=== PATIENT | female | born 1945 | race Caucasian/White ===

== ENCOUNTER 2024-02-26 13:57 | Emergency (ER) | payer OTHER ==
[~2024-02-26] VITALS: Ht 162.6 cm; Wt 68.0 kg
[~2024-02-26 13:57] MED LIST: ACID1GRA4 PO; AEC81 PO; BISA-151 PO; DRON400T7 PO; FURO20TA4 PO; METO-391 PO; METO50TA9 PO; MIDO5TAB4 PO; ONDA-243 PO; PANT40TA54 PO; QUET50TA24 PO; SACU1TAB PO
--- NOTE | 2024-02-26 14:21 | ERN ---
ED Note History of Present Illness Stated Complaint: WEAKNESS Chief Complaint: Weakness Time Seen by MD: 14:06 Dictation: 78-year-old female with a history of CHF, hypotension, Alzheimer's and dementia presents to the ED via EMS for evaluation of weakness onset 3 days ago. Has been reports lower extremity swelling, abdominal pain, dysuria, bowel dysfunction, but denies any other associated symptoms at this time. Allergies: Coded Allergies: No Known Allergies (Unverified Allergy, Unknown, 01/05/24) Home Meds Active Scripts Quetiapine Fumarate (Quetiapine Fumarate) 50 Mg Tablet, 1 TAB PO HS for 30 Days, #30 TAB 0 Refills Prov:XANDER MARKS MD 01/10/24 Midodrine HCl (Midodrine HCl) 5 Mg Tablet, 1 TAB PO TID for 30 Days, #90 TAB 0 Refills Prov:XANDER MARKS MD 01/10/24 Sacubitril/Valsartan (Entresto 24 mg-26 mg Tablet) 24 Mg-26 Mg Tablet, 1 EACH PO BID, #30 TAB 0 Refills Prov:XANDER MARKS MD 01/09/24 Metoprolol Succinate (Toprol Xl) 50 Mg Tab.er.24h, 50 MG PO DAILY, #30 TAB 0 Refills Prov:XANDER MARKS MD 01/09/24 Aspirin (ASPIRIN 81 MG ECTAB) 81 Mg Ectab, 81 MG PO DAILY, #30 TAB.EC 0 Refills Prov:XANDER MAKRS MD 01/09/24 Reported Medications Bisacodyl (Bisacodyl) 5 Mg Tablet.dr, 2 TAB PO AD for constipation, #2 TAB 0 Refills 01/08/24 Acidophilus/Bulgaricus (Floranex Granules Packet) 100 Million Cell Gran.pack, 1 EACH PO TID for d, PACK 01/05/24 Ondansetron (Ondansetron Odt) 4 Mg Tab.rapdis, 1 TAB PO Q6HPRN PRN for n ausea/vomiting for 4 Days, #16 TAB 0 Refills 01/05/24 Metoprolol Succinate (Metoprolol Succinate) 50 Mg Tab.er.24h, 1 TAB PO DAILY for 30 Days, #30 TAB 0 Refills 01/05/24 Dronedarone Hydrochloride (Multaq) 400 Mg Tablet, 1 TAB PO BID for 30 Days, #60 TAB 0 Refills 01/05/24 Furosemide (Furosemide) 20 Mg Tablet, 1 TAB PO DAILY for 30 Days, #30 TAB 0 Refills 01/05/24 Pantoprazole Sodium (Pantoprazole Sodium) 40 Mg Tablet.dr, 1 TAB PO BID for 30 Days, #30 TAB 0 Refills 01/05/24 Past Medical History Past Medical History: Hypertension Surgical History: Unknown Review of System Dictation Constitutional: Negative for fever,chills, and weight loss Eyes: Negative for injury, pain,redness, and discharge ENT: Negative for injury,pain or swelling Cardiovascular: Negative for chest pain, palpitations, and edema Respiratory: Negative for shortness of breath, cough, and wheezing, Abdomen/GI: Positive for abdominal pain, negative for nausea, vomiting, diarrhea, and constipation Back: Negative for injury and pain : Positive for dysuria, dysfunction Negative for injury, bleeding and discharge MS/Extremity: Positive for lower extremity swelling Negative for injury and deformity Skin: Negative for rash, and discoloration Neuro: Negative for headache, weakness, numbness, tingling, and seizure Psych: Negative for suicide ideation, homicidal ideation, and hallucinations Initial Vital Sign VS Vital Signs Date Time Temp Pulse Resp B/P (MAP) Pulse Ox O2 Delivery O2 Flow Rate FiO2 02/26/24 14:02 98.4 103 16 105/69 95 Room Air 02/26/24 14:41 0 21 Physical Exam Dictation General: awake, alert, NAD Head/Face: Normocephalic, atraumatic Eyes: PERRL, EOMI, vision at baseline ENT: oral cavity clear, TMs clear, no signs of infection Neck: Trachea midline, supple, no nuchal rigidity Cardiovascular: RRR, normal S1/S2, No MRGs, +2 pedal edema bilaterally Respiratory: CTAB, no respiratory distress, No rales or wheezes Abdomen: Soft, non-tender, non-distended, normal bowel sounds, no guarding or rebound. Skin: Warm, dry, normal turgor, no rash MS/Extremity: Pulses equal, no cyanosis, neurovascular intact, FROM ED Course ED Course Vital Signs Date Time Temp Pulse Resp B/P (MAP) Pulse Ox O2 Delivery O2 Flow Rate FiO2 02/26/24 14:41 98.2 100 16 105/70 96 Room Air* 0 21 02/26/24 14:02 98.4 103 16 105/69 95 Room Air Medical Decision Making MDM MDM: Differential diagnosis: UTI, electrolyte imbalance, weakness 1430-patient does not want to be seen at the ER anymore. Patient will be leaving AMA Previous outside records reviewed: Old ER visits. Need for hospitalization: Patient does not meet criteria for hospitalization. Need for emergency major/minor surgery: No Patient's prior external medical records from other ER visits were reviewed by me as indicated. Prior testing and results from previous visits were reviewed. Prior tests were taken into account with medical decision making and resource utilization, independent historian/historians were used to obtain complete medical history. I independently interpreted the test that were performed, results were reviewed by me and considered findings on radiology if ordered. Medical management and examination interpretation discussions were had by me with other qualified healthcare professionals as indicated for the patient's care. DX & DISP Disposition: AMA Departure Impression: Primary Impression: Weakness Condition: Against Medical Advice Referrals: JAYJAY NGUYEN MD (PCP) I personally scribed for FLAQUITO WHITT MD ([email or web address]) on 02/26/24 at 14:39. Electronically submitted by Jose Morris ([email or web address]). FLAQUITO WHITT MD Feb 26, 2024 14:21
[2024-02-26 14:41] VITALS: BP 105/70; PULSE 100; RESP 16; TEMP 98.3; O2SAT 96
--- NOTE | 2024-02-26 14:42 | NUR ---
PT IS REPORTING THAT SHE HAS MADE A MISTAKE BY COMING TO THE HOSPITAL AND STATES SHE DOES NOT WANT TO BE WORKED UP OR REMAIN IN THE ED AT THIS TIME. ED DR. JOSE WAS INFORMED OF PT DECISION FOLLOWING HIS EVALUATION AT PT BEDSIDE. CHARGE NURSE WAS INFORMED OF DECISION.
--- NOTE | 2024-02-26 14:45 | NUR ---
FAXED PCS FORM TO [facility]. DISPATCH MADE AWARE. CREW TOOK PT BACK TO [facility].
== END 2024-02-26 14:47 | disposition left against medical advice (07) ==
LOC: EDH 13:57
DX: R53.1 Weakness (principal); I10 Essential (primary) hypertension; Z79.82 Long term (current) use of aspirin; Z79.899 Other long term (current) drug therapy
CPT/HCPCS: 99281